=== PATIENT | male | born 1955 | race Caucasian/White ===

== ENCOUNTER 2023-01-11 12:51 | Outpatient (AMB) | payer MEDICARE, SELFPAY ==
--- NOTE | 2023-01-11 12:58 | A.OFFPC_ITS ---
Vital Signs 01/11/23 13:08 Height 5 ft 10 in Weight 175 lb BMI 25.1 BP 140/78 H Blood Pressure Location Lt brachial Position Sitting Pulse 102 H Pulse Source Pulse Oximeter Pulse Oximetry (%) 97 Intake Visit Reasons: EST. 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 Accompanied by: Self / Same As Patient Allergies No Known Allergies Allergy (Verified 01/11/23 13:27) Medication List - Last Reconciled 01/11/23 by Vanesa Mata CNP No Known Home Meds Tobacco use date assessed: 01/11/23 Fall risk assessment: No Falls in past year Last assessed Fall Risk: 01/11/23 Dental Screening Dental Screen Date: 01/11/23 Did you have a dental visit in the last 12 months?: Yes Did you have a dental problem in the last 6 months where you did not have access to dental care?: No Was dental information given to patient?: Patient has dentist HPI HPI Comments History of Present Illness Details 67-year-old male presents to [facility] care. He notes the last time he was evaluated by his former PCP was 6-7 years ago. He had blood work done 5 years ago He reports history of chronic low back pain. Not on prescription medications. He reports intermittent right-sided low back pain for the past 2 years. He describes the pain as jabbing. He states that the pain sometimes radiates to his entire BLE. He denies bowel or urinary incontinence. He denies loss of sensation. He denies fall, injury, or trauma. He denies acute symptoms at this time. He was evaluated for chronic back pain at the [place] walk[facility] on 12/20/2022. He was prescribed meloxicam and cyclobenzaprine. He notes that the medications were not effective. He reports history of lumbar disc deformity at childhood; surgically repaired when he was 7 years old. He notes he was informed he may develop nerve issues from his lumbar spine. He states that he recently noticed swelling to his lower legs and feet. He notes that his job required prolonged sitting. He retired 3 years ago. [facility] Surgical History (Updated 01/11/23 @ 13:05 by Osvaldo Mariscal CMA) Hx of hernia repair Family History (Updated 01/11/23 @ 13:06 by Osvaldo Mariscal CMA) Mother Stomach cancer Social History (Updated 01/11/23 @ 13:07 by Osvaldo Mariscal [facility]) Housing: House Alcohol intake: current Alcohol intake frequency: 0-2 drinks per day Alcohol type: wine Patient Tobacco Use Status: Current everyday Tobacco user Cigarettes Per Day: 5 e-Cigarette/Vaping Use: Never Used Current occupational status: retired Cognitive needs: No Hearing needs: No Vision needs: Yes Questionnaire PHQ-9 Over the last 2 weeks, how often have you been bothered by any of the following problems? 1. Little interest or pleasure in doing things: not at all 2. Feeling down, depressed, or hopeless: not at all 3. Trouble falling or staying asleep, or sleeping too much: not at all 4. Feeling tired or having little energy: not at all 5. Poor appetite or overeating: not at all 6. Feeling bad about yourself - or that you are a failure or have let yourself or your family down: not at all 7. Trouble concentrating on things, such as reading the newspaper or watching television: not at all 8. Moving or speaking so slowly that other people could have noticed. Or the opposite - being so fidgety or restless that you have been moving around a lot more than usual: not at all 9. Thoughts that you would be better off or of hurting yourself in some way: not at all Total score: 0 Depression Screening Interpretation: Negative 69104 - PHQ-9 Billing: Yes Source: Developed by Drs. Erik Young, Carmen Gunter, Sadiq Sebastian and colleagues, with an educational pao from [employer]. Thrive Questionnaire Date Thrive assessed: 01/11/23 I am a: Patient What is your living situation today?: I have a steady place to live Within the past 12 months, did the food you bought not last and you didn't have the money to get more?: Never true Within the past 12 months, did you worry whether your food would run out before you got money to buy more?: Never true Do you have trouble paying for medicines?: No Do you have trouble getting transportation to medical appointments?: No Do you have trouble paying your heating and electricity bill?: No Do you have trouble taking care of your child, family member or friend?: No Do you have trouble with day-to-day activities such as bathing, preparing meals, shopping, managing finances, etc.?: No Are you currently unemployed and looking for a job?: No Are you interested in more education?: No Please select the resources that you would like help with: None Currently or been in a relationship where the following occur: no concerns reported AUDIT C Alcohol Use Questionnaire (AUDIT-C) 1. How often do you have a drink containing alcohol?: 4 or more times a week 2. How many drinks containing alcohol do you have on a typical day when you are drinking?: 1 or 2 3. How often do you have six or more drinks on one occasion?: Never Total Score: 4 NAIN-7 AMB Questionnaire NAIN-7 Date NAIN - 7 assessed: 01/11/23 Feeling nervous, anxious, or on edge: 0 = Not at all Not being able to stop or control worryin = Not at all Worrying too much about different things: 0 = Not at all Trouble relaxin = Not at all Being so restless that it is hard to sit still: 0 = Not at all Becoming easily annoyed or irritable: 0 = Not at all Feeling afraid as if something awful might happen: 0 = Not at all Total NAIN-7 score (0-4 normal; 5-9 mild; 10-14 moderate; 15-21 severe): 0 Source: Developed by Drs. Erik Young, Carmen Gunter, Sadiq Sebastian and colleagues, with an educational pao from [employer]. NAIN-7 Assessment Billing NAIN-7 Assessment Tool: NAIN-7 Assessment 53463 Review of Systems Const Details: Const Denies chills, Denies fatigue, Denies fever(s), Denies headache(s) and Denies weakness ENT Denies dizziness and Denies headache(s) Card Denies chest pain, Denies lightheadedness, Denies dyspnea and Denies other (Palpitations) Resp Denies cough, Denies dyspnea, Denies wheezing and Denies other ( shortness of breath) GI Denies abdominal pain, Denies melena, Denies hematochezia, Denies change in bowel habits, Denies dyspepsia and Denies nausea Denies hematuria and Denies dysuria Musc Reports edema to lower legs and feet, Denies abnormal gait, Denies myalgias, Denies arthralgias, Denies numbness and Denies tingling Skin/Breast Denies rash, Denies unusual bruising and Denies wounds Neuro Denies abnormal gait, Denies dizziness, Denies headache(s), Denies memory loss, Denies numbness, Denies Sensory deficit (Neuro), Denies tingling and Denies weakness Psych Denies anxiety and Denies depression Endo Denies fatigue Aller/Immun Denies wheezing Physical exam (Primary Care) Vital Signs: Last Vital Signs Pulse 102 H 01/11/23 13:08 BP 140/78 H 01/11/23 13:08 Pulse Ox 97 01/11/23 13:08 BMI result Body Mass Index 25.1 Tobacco/Smoking Status: Tobacco use Status Tobacco use date assessed 01/11/23 01/11/23 13:01 Patient Tobacco Use Status Current everyday Tobacco 01/11/23 13:07 e-Cigarette/Vaping Use Never Used 01/11/23 13:07 PHQ-9: PHQ-9 Score PHQ-9: Total score 0 01/11/23 13:11 Depression Screening Interpretation: Negative Thrive Assessment: Date of Thrive Assessment Date Thrive assessed 01/11/23 01/11/23 13:11 Currently or been in a relationship where the following occur: no concerns reported Const Other: General: no acute distress and well developed Nutritional Appearance: well nourished Orientation/consciousness: patient oriented x3 HENMT Head: Yes normocephalic and Yes atraumatic Eyes General: appearance normal, both eyes and all related structures Pupils: Equal, round and reactive pupils present EOM: EOMs intact bilaterally Resp Effort & Inspection: normal respiratory effort Auscultation: clear to auscultation bilaterally Cardio Rate: regular rate Rhythm: regular rhythm Heart sounds: S1 normal heart sound present, S2 normal heart sound present, no gallops, no murmurs and no rubs GI Palpation (GI): No Abdominal aortic bruit present, Soft to palpation, nontender, No hepatosplenomegaly present and No Rebound tenderness present Auscultation: normal bowel sounds General: Yes no CVA tenderness Back/Spine/Pelvis Back: no CVA tenderness Cervical Spine: cervical ROM normal and No Cervical spine tenderness Thoracic/Lumbar Spine: thoraco-lumbar ROM normal, No pain with thoraco-lumbar ROM, No thoracic spinal tenderness and No lumbar spinal tenderness Extrem General: Yes normal to inspection, No calf tenderness Moderate nonpitting edema to bilateral lower legs and ankles Skin General: warm and dry. Normal skin color. Normal skin turgor Lesions: no lesions Rashes: no rashes Trauma: no lacerations or abrasions Wounds: no wounds Nails: normal Neuro General: patient oriented x3, gait normal and no focal neuro deficit Cranial nerves: Yes Equal, round and reactive pupils present Cognition (Neuro): normal cognition Gait exam (Neuro): Normal gait present Motor exam (neuro): 5/5 motor strength present throughout Sensory Exam: No Sensory deficit (Neuro) Psych Appearance: grossly normal Affect: normal affect Attitude: cooperative Thought process: Normal thought process present Assessment and Plan Assessment & Plan (1) Low back pain: Code(s): M54.50 - Low back pain, unspecified Plan: Reports intermittent right-sided low back pain for the past 2 years. He describes the pain as jabbing. He states that the pain sometimes radiates to his entire BLE Reports history of lumbar disc deformity that was surgically repaired at childhood Likely nerve pain due to bulging/slipped disc Gabapentin ordered. Take as prescribed X-ray ordered Follow-up in 1 month or return sooner with worsening or new symptoms Verbalized understanding and agreed with treatment plan. (2) Bilateral lower extremity edema: Code(s): R60.0 - Localized edema Plan: Reports swelling to both lower legs and ankles Moderate nonpitting edema to bilateral lower legs and ankles Likely venous insufficiency Elevated bilateral lower extremity while sitting or lying Return with worsening or new symptoms Verbalized understanding and agreed with treatment plan. (3) Laboratory tests ordered as part of a complete physical exam (CPE): Code(s): Z00.00 - Encounter for general adult medical examination without abnormal findings Plan: Fasting labs ordered as part of a complete physical exam. Advised to fast for at least 10 hours before getting labs drawn. May drink water Verbalized understanding and agreed with treatment plan. Orders: Orders Complete Blood Count Auto Diff Today Z00.00 - Encounter for general adult medical examination without abnormal findings Comprehensive [place]. Panel Fast Today Z00.00 - Encounter for general adult medical examination without abnormal findings Lipid Panel Today Z00.00 - Encounter for general adult medical examination without abnormal findings TSH reflex Free T4 Today Z00.00 - Encounter for general adult medical examination without abnormal findings UA CC w/rflx Micro + Cult Today Z00.00 - Encounter for general adult medical examination without abnormal findings PSA, Ultra Sensitive Today Z00.00 - Encounter for general adult medical examination without abnormal findings XR lumbar spine 2-3V Today M54.50 - Low back pain, unspecified Medications: New gabapentin 100 mg PO BEDTIME 30 days 30 caps 1RF Coding Level of Care Code New Pt Level 3 (29932) Diagnoses Low back pain M54.50 Bilateral lower extremity edema R60.0 Laboratory tests ordered as part of a complete physical exam (CPE) Z00.00 Additional Codes NAIN-7 Assessment Billing - NAIN-7 Assessment Tool: NAIN-7 Assessment 83104 ([id number])
[2023-01-11 13:08] VITALS: BP 140/78; PULSE 102; O2SAT 97; BMI 25.1
== END 2023-01-11 13:55 | disposition home or self-care (01) ==
PROVIDERS: Visit Provider Nurse Practitioner Family
DX: M54.50 Low back pain, unspecified (principal); R60.0 Localized edema; Z00.00 Encounter for general adult medical examination without abnormal findings
CPT/HCPCS: 99203

== ENCOUNTER 2023-01-17 06:58 | Outpatient (REF) | payer MEDICARE, SELFPAY ==
--- NOTE | ~2023-01-17 | XR_ITS ---
EXAMINATION: XR LUMBOSACRAL SPINE CLINICAL INFORMATION: Low back pain. COMPARISON: CT abdomen 04/06/2007. TECHNIQUE: Three views of the lumbosacral spine. FINDINGS: There is mild scoliosis convex to the right. Degenerative changes are present at most levels with disc space narrowing. Changes are most marked at L4-L5 and L5-S1. There is grade 1 anterolisthesis with forward slippage of L5 upon S1. This appears slightly worse when compared to the 2006 study. There is mild grade 1 retrolisthesis with backward slippage of L3 upon L4, which is new when compared to 2007. No bony destructive lesions or acute fractures are seen. XR/XR lumbar spine 2-3V IMPRESSION: Degenerative changes lumbar spine as described above. Worsening of grade 1 anterolisthesis L5 upon S1 with mild retrolisthesis of L3 upon L4.
[2023-01-17 11:24] LABS: MANUAL DIFF FLAG NO
[2023-01-17 11:46] LABS: Basophils Absolute Auto 0.1 X10*3/uL (0.0-0.2); Basophils Percent Auto 0.8 % (0-2); Eosinophils Absolute Auto 0.2 X10*3/uL (0.0-0.4); Eosinophils Percent Auto 2.3 % (0-4); Hematocrit 45.9 % (42.0-52.0); Hemoglobin 15.6 g/dl (14.0-18.0); Imm Gran Abs Auto 0.05 X10*3/uL (0.00-0.03); Imm Gran Pct Auto 0.7 % (0.0-0.4); Lymphocytes Absolute Auto 3.1 X10*3/uL (1.2-4.9); Lymphocytes Percent Auto 41.9 % (20-40); Mean Corpuscular Hemoglobin 33.2 pg (27.0-33.0); Mean Corpuscular Volume 97.7 fL (80.0-98.0); Mean Platelet Volume 10.2 fL (9.4-12.4); Monocytes Absolute Auto 0.8 X10*3/uL (0.1-1.2); Monocytes Percent Auto 11.2 % (2-11); Neutrophils Absolute Auto 3.2 x10*3/uL (2.0-8.3); Neutrophils Percent Auto 43.1 % (45-73); Platelet Count 240 X10*3/uL (160-400); Red Cell Distribution Width 13.2 % (11.0-16.0); White Blood Count 7.3 X10*3/uL (4.8-10.8)
[2023-01-17 12:47] LABS: Alanine Aminotransferase 41 U/L (0-40); Albumin Level 4.3 g/dL (3.5-5.0); Alkaline Phosphatase 47 U/L (39-117); Anion Gap 16 (12-20); Aspartate Amino Transferase 23 U/L (5-37); Bilirubin Total 0.7 mg/dL (0.0-1.0); Blood Urea Nitrogen 14 mg/dL (9-16); Calcium 9.3 mg/dL (8.4-10.2); Carbon Dioxide 26 mmol/L (22-29); Chloride 104 mmol/L (96-108); Cholesterol 310 mg/dL; Estimated Glomerular Filt Rate > 60; Glucose Fasting 104 mg/dL (60-99); HDL Cholesterol 53 mg/dL; LDL Cholesterol Calculated 225 mg/dl; Potassium 4.9 mmol/L (3.3-5.1); Sodium 141 mmol/L (135-145); Triglycerides 164 mg/dL
[2023-01-17 12:48] LABS: TSH reflex Free T4 3.67 uIU/mL (0.32-4.0)
[2023-01-21 12:27] LABS: PSA, Ultra Sensitive 0.69 ng/mL
== END 2023-01-17 06:59 | disposition home or self-care (01) ==
LOC: HO.HMGCX 06:58
PROVIDERS: Visit Provider Nurse Practitioner Family
DX: M54.50 Low back pain, unspecified (principal); Z00.00 Encounter for general adult medical examination without abnormal findings; Z12.5 Encounter for screening for malignant neoplasm of prostate
CPT/HCPCS: 36415; 72100; 80053; 80061; 84153; 84443; 85025

== ENCOUNTER 2023-01-18 07:00 | Outpatient (REF) | payer MEDICARE, SELFPAY ==
[2023-01-18 11:38] LABS: Appearance Urine Turbid; Color Urine Dark Yellow; Glucose Urine UA Negative (Negative); Leukocyte Esterase Urine Large (3+) (Negative); Nitrite Urine Negative (Negative); PH 6.5 (5.0-9.0); UMIC TRIGGER UACC YES; Urine Blood Trace (Negative); Urine Ketones Trace mg/dL (Negative); Urine Protein 30 (1+) mg/dL (Neg-Trace)
[2023-01-18 11:45] LABS: Bacteria Urine 4+ (None Seen); Squamous Epithelial Cell Urine 0-2 /HPF (0-2); UACC Culture Trigger YES; WBC Urine >50 /HPF (0-5)
== END 2023-01-18 07:01 | disposition home or self-care (01) ==
LOC: HO.HMGCLNP 07:00
PROVIDERS: Visit Provider Nurse Practitioner Family
DX: Z00.00 Encounter for general adult medical examination without abnormal findings (principal); R82.90 Unspecified abnormal findings in urine
CPT/HCPCS: 81001; 87086; 87088; 87186

== ENCOUNTER 2023-05-17 09:59 | Outpatient (REF) | payer MEDICARE, SELFPAY ==
--- NOTE | ~2023-05-17 | XR_ITS ---
EXAMINATION: XR THORACIC SPINE, 3 VIEWS XR LUMBAR SPINE, 3 VIEWS CLINICAL INFORMATION: Back pain status post fall COMPARISON: None available. TECHNIQUE: 3 views of the thoracic spine 3 views lumbar spine FINDINGS: 5 nonrib-bearing lumbar-type vertebral bodies. Anterior wedging with superior endplate compression deformity of T12, chronicity indeterminate. Correlation with physical exam. Slight dextrocurvature of the midthoracic spine. Grade 1-2 anterolisthesis of L5 and S1 with bilateral L5 pars defects. Moderate multilevel degenerative changes with disc space narrowing, endplate sclerosis, vacuum disc phenomenon, osteophyte formation, and facet arthropathy. Vertebral body heights and disc spaces are otherwise maintained. Posterior elements are intact. Paraspinal soft tissues are unremarkable. Visualized portions of the chest and abdomen are unremarkable. XR/XR lumbar spine 2-3V IMPRESSION: 1. Anterior wedging with superior endplate compression deformity of T12, chronicity indeterminate. Correlation with physical exam. 2. Slight dextrocurvature of the midthoracic spine. 3. Grade 1-2 anterolisthesis of L5 and S1 with bilateral L5 pars defects. 4. Moderate multilevel degenerative changes
--- NOTE | ~2023-05-17 | XR_ITS ---
EXAMINATION: XR THORACIC SPINE, 3 VIEWS XR LUMBAR SPINE, 3 VIEWS CLINICAL INFORMATION: Back pain status post fall COMPARISON: None available. TECHNIQUE: 3 views of the thoracic spine 3 views lumbar spine FINDINGS: 5 nonrib-bearing lumbar-type vertebral bodies. Anterior wedging with superior endplate compression deformity of T12, chronicity indeterminate. Correlation with physical exam. Slight dextrocurvature of the midthoracic spine. Grade 1-2 anterolisthesis of L5 and S1 with bilateral L5 pars defects. Moderate multilevel degenerative changes with disc space narrowing, endplate sclerosis, vacuum disc phenomenon, osteophyte formation, and facet arthropathy. Vertebral body heights and disc spaces are otherwise maintained. Posterior elements are intact. Paraspinal soft tissues are unremarkable. Visualized portions of the chest and abdomen are unremarkable. XR/XR thoracic spine 2V IMPRESSION: 1. Anterior wedging with superior endplate compression deformity of T12, chronicity indeterminate. Correlation with physical exam. 2. Slight dextrocurvature of the midthoracic spine. 3. Grade 1-2 anterolisthesis of L5 and S1 with bilateral L5 pars defects. 4. Moderate multilevel degenerative changes
== END 2023-05-17 10:00 | disposition home or self-care (01) ==
LOC: HO.HMGCX 09:59
PROVIDERS: Visit Provider Chiropractor
DX: M54.9 Dorsalgia, unspecified (principal); Z91.81 History of falling
CPT/HCPCS: 72070; 72100

== ENCOUNTER → 2024-03-21 10:07 | Outpatient (RCR) | payer MEDICARE, SELFPAY ==
--- NOTE | 2023-02-03 08:19 | MHC.PT.EP ---
[facility] [place] Office [place] Office [place] Office [address] Vipul Huntley [address] [phone] F: [phone] F: [phone] F: [phone] F: [phone] Physical Therapy Plan of Care Date of Evaluation: Date of Surgery: Diagnosis: low back pain Assessment: Patient is a 67 year old R handed female who presents with s/s consistent with low back pain. He is retired but enjoys being active, walking his dog and getting out into the community. Patient past medical history is includes hernia surgery. Current impairments include pain, posture, ROM, strength, flexibility, balance, body mechanics, activity tolerance and functional mobility. 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 Patient is motivated with good rehab potential. Skilled PT will address impairments and functional limitations in order to achieve goals. Frequency and Duration: The patient will be seen 2x/week for 5 weeks. Short Term Goals: I with HEP - 2 weeks AROM rotation 100% pain free - 3 weeks 90/90 lacking 25 or less - 3 weeks Marble Cutter Goals: Oswestry 20% or less - 5 weeks Hip strength 4/5 or better grossly - 5 weeks SLB > 10 seconds b/l - 5 weeks Max pain 3/10 with daily activities - 5 weeks Treatment Plan: Modalities to reduce pain, spasms and effusion. Manual therapy to restore motion and function. Therapeutic exercise to improve strength and flexibility. Neuromuscular re-education for posture and balance. Therapeutic activities to return to functional activities of daily living. Electronically signed by: Eric Wyatt, PT Please sign and return to therapist. Thank you for your referral.
--- NOTE | 2024-03-21 10:07 | MHC.PT.DC ---
[facility] [place] Office [place] Office [place] Office [address] Vipul Huntley 140 [facility] [phone] F: [phone] F: [phone] F: [phone] F: [phone] Physical Therapy Discharge Report Diagnosis: low back pain Date of Surgery: Date of Evaluation: 02/03/23 Date of Discharge: 03/27/23 Treatments to Date: Cancellations to Date: No Shows to Date: Discharge Status: Patient Elected to Stop Discharge Summary: 02/07/23: progressed with stretching, balance, strength. no adverse reactions. continue to progress as tolerated. Patient is a 67 year old R handed female who presents with s/s consistent with low back pain. He is retired but enjoys being active, walking his dog and getting out into the community. Patient past medical history is includes hernia surgery. Current impairments include pain, posture, ROM, strength, flexibility, balance, body mechanics, activity tolerance and functional mobility. 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 Patient is motivated with good rehab potential. Skilled PT will address impairments and functional limitations in order to achieve goals. Electronically signed by: Eric Wyatt, PT Please sign and return to therapist. Thank you for your referral.
== END | disposition home or self-care (01) ==
LOC: HO.PTCHIC 02-03 06:55
PROVIDERS: Visit Provider Nurse Practitioner Family
DX: M54.50 Low back pain, unspecified (principal)
CPT/HCPCS: 97110; 97112; 97161